=== PATIENT | male | born 1995 | race Two or more races ===

== ENCOUNTER 2018-05-14 13:47 | Emergency (ER) | payer OTHER ==
--- NOTE | 2018-05-14 14:59 | ER Document Report ---
ED Skin Rash/Insect Bite/Abscs - General Chief Complaint: Rash Stated Complaint: RASH Time Seen by Provider: 05/14/18 14:43 Mode of Arrival: Ambulatory Information source: Patient Notes: Patient with complaint of poison juana exposure to his bilateral arms. Patient reports this happened approximately 4 days ago. 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 Patient has tried putting calamine lotion to the area with no relief. Past Medical History - General Information source: Patient - Social History Smoking Status: Never Smoker Frequency of alcohol use: None Drug Abuse: None Family History: Reviewed & Not Pertinent - Medical History Medical History: Negative Surgical Hx: Negative Review of Systems - Review of Systems Constitutional: No symptoms reported EENT: No symptoms reported Cardiovascular: No symptoms reported Respiratory: No symptoms reported Gastrointestinal: No symptoms reported Genitourinary: No symptoms reported Male Genitourinary: No symptoms reported Musculoskeletal: No symptoms reported Skin: See HPI Hematologic/Lymphatic: No symptoms reported Neurological/Psychological: No symptoms reported Physical Exam - Vital signs Vitals: Temp Pulse Resp BP Pulse Ox 98.5 F 60 20 124/54 L 97 05/14/18 13:55 05/14/18 13:55 05/14/18 13:55 05/14/18 13:55 05/14/18 13:55 - Notes Notes: PHYSICAL EXAMINATION: GENERAL: Well-appearing, well-nourished and in no acute distress. HEAD: Atraumatic, normocephalic. EYES: Pupils equal round and reactive to light, extraocular movements intact, sclera anicteric, conjunctiva are normal. ENT: Nares patent, oropharynx clear without exudates. Moist mucous membranes. NECK: Normal range of motion, supple without lymphadenopathy LUNGS: Breath sounds clear to auscultation bilaterally and equal. No wheezes rales or rhonchi. HEART: Regular rate and rhythm without murmurs ABDOMEN: Soft, nontender, nondistended abdomen. No guarding, no rebound. No masses appreciated. Musculoskeletal: Normal range of motion, no pitting or edema. No cyanosis. NEUROLOGICAL: Cranial nerves grossly intact. Normal speech, normal gait. Normal sensory, motor exams PSYCH: Normal mood, normal affect. SKIN: Weeping, oozing and crusting blisters and vesicles noted to patient's bilateral arms consistent with poison juana exposure. Course - Re-evaluation Re-evalutation: 05/14/18 14:55 Patient's examination consistent with poison juana exposure. Will place patient on a prednisone taper pack as well as provide him with a prescription for triamcinolone cream. Patient will also be instructed to take Benadryl 50 mg every 6 hours for the itching. - Vital Signs Vital signs: Temp Pulse Resp BP Pulse Ox 98.5 F 60 20 124/54 L 97 05/14/18 13:55 05/14/18 13:55 05/14/18 13:55 05/14/18 13:55 05/14/18 13:55 Discharge - Discharge Clinical Impression: Poison juana Condition: Stable Disposition: HOME, SELF-CARE Additional Instructions: Poison Juana Poison juana and poison oak can cause an itchy rash. This is called contact dermatitis. It's an allergy to an oil in the plant's leaves. The oil can be spread from clothing to skin, from pets to humans, or from one spot on the body to another. Washing thoroughly with soap immediately after exposure can prevent the rash. (Clothing should be washed as well.) If the oil is not removed, an itchy rash develops a few days after the exposure. Blisters may develop. Two to three weeks may be required for healing. Generally, treatment consists of: (1) an immediate thorough washing with soap to remove the oil, (2) application of a cortisone cream, and (3) antihistamines for itching. If the reaction is particularly severe, oral cortisone medicine may be required. If there are oozing areas, these can be soaked in epsom salts or Nadege's solution. Call the doctor if the rash worsens despite treatment, or if signs of infection occur such as spreading redness, red streaks, swollen glands, swelling , or fever. Prescriptions: Prednisone [Deltasone 10 mg Tablet] 10 mg PO ASDIR PRN #21 tablet PRN Reason: Triamcinolone Acetonide 80 gm TP BID #80 gr Referrals: [facility] [Provider Group] - Follow up as needed
[2018-05-14 15:10] VITALS: BP 128/64
== END 2018-05-14 15:00 | disposition home or self-care (01) ==
LOC: ER 13:47
DX: L23.7 Allergic contact dermatitis due to plants, except food (principal)
CPT/HCPCS: 99282

== ENCOUNTER 2018-09-21 21:40 | Emergency (ER) | payer SELFPAY ==
[2018-09-21] MEDS ORDERED: LIDOCAINE 1%/EPINEPHRINE INJ 20 ML VIAL INJ ONE (22:50)
[2018-09-21] MEDS ORDERED: LIDOCAINE 4%/TETRACAINE 0.5%/EPI 0.18% 5 ML TOPICAL SOLN TOP ONE (22:50)
--- NOTE | 2018-09-21 22:54 | ER Document Report ---
ED General - General Chief Complaint: Laceration Stated Complaint: LEFT HAND LACERATION Time Seen by Provider: 09/21/18 22:43 Notes: Patient is a 23-year-old male who presents with complaints of unintentional laceration to the right thumb and hand. Patient was trying to cut the piece of plastic of a car battery when the knife slipped and cut his left hand. He denies any other injuries. No numbness or weakness into the thumb. No other complaints at this time. Last tetanus shot was around 1 year ago. TRAVEL OUTSIDE OF THE [place] IN LAST 30 DAYS: No - Related Data Allergies/Adverse Reactions: No Known Allergies Allergy (Unverified 09/22/18 01:21) Past Medical History - Social History Smoking Status: Never Smoker Frequency of alcohol use: None Drug Abuse: None Family History: Reviewed & Not Pertinent Renal/ Medical History: Denies: Hx Peritoneal Dialysis Review of Systems - Review of Systems Notes: My Normal Review Basic REVIEW OF SYSTEMS: CONSTITUTIONAL : Denies fever, chills, or sweats. Denies recent illness. MUSCULOSKELETAL: Laceration on thumb. SKIN: Denies rash or skin lesions. NEUROLOGICAL: Denies sensory or motor loss. ALL OTHER SYSTEMS REVIEWED AND NEGATIVE. Physical Exam - Vital signs Vitals: Temp Pulse Resp BP Pulse Ox 98.2 F 72 16 111/56 L 100 09/21/18 21:48 09/21/18 21:48 09/21/18 21:48 09/21/18 21:48 09/21/18 21:48 - Notes Notes: General Appearance: Well nourished, alert, cooperative, no acute distress, mild obvious discomfort. Vitals: reviewed, See vital signs table. Extremities: Patient has a laceration is approximately 5 cm that extends from the dorsal medial aspect of the thumb onto the dorsal aspect of the hand. Small amount of slow venous oozing. Skin: warm, dry, appropriate color, no rash Neuro: speech clear, oriented x 3, normal affect, responds appropriately to questions. Course - Re-evaluation Re-evalutation: 09/22/18 01:27 Wound was thoroughly irrigated cleaned and explored. Patient appears to have a partial laceration through the abductor pollicis muscle; however, patient still able to do abduction and opposition to the pinky. Because of the laceration through the muscle I have placed patient in a thumb spica splint and will have him follow-up with Dr. ventura. I explained to the patient the importance of this follow-up. I will place patient on Keflex to help prevent infection. I encouraged him return to ER in 7 days for suture removal. I encouraged him return to ER immediately if he has any redness or swelling or signs of infection. Patient's last tetanus shot was 1 year ago and therefore he does not need a repeat tetanus shot. Dictation of this chart was performed using voice recognition software; therefore, there may be some unintended grammatical errors. - Vital Signs Vital signs: Temp Pulse Resp BP Pulse Ox 98.4 F 70 16 108/66 100 09/22/18 01:10 09/22/18 01:10 09/22/18 01:10 09/22/18 01:10 09/22/18 01:10 Procedures - Immobilization Left Hand Pre-Proc Neuro Vasc Exam: Normal Immobilizer type: Thumb spica Performed by: PCT Post-Proc Neuro Vasc Exam: Normal - Laceration/Wound Repair Left thumb Wound length (cm): 5 Wound's Depth, Shape: Linear Anesthetic type: 1% Lidocaine w/epi Volume Anesthetic (mLs): 2 Wound explored: Clean Irrigated w/ Saline (mLs): 100 Wound Repaired With: Sutures Suture Size/Type: 5:0, Ethilon Number of Sutures: 10 Post-procedure wound care: Sterile dressing applied, Splint applied Post-procedure NV exam normal: Yes Complications: No Discharge - Discharge Clinical Impression: Laceration of hand Qualifiers: Encounter type: initial encounter Foreign body presence: without foreign body Laterality: left Qualified Code(s): S61.412A - Laceration without foreign body of left hand, initial encounter Condition: Stable Disposition: HOME, SELF-CARE Additional Instructions: Please follow-up with hand surgeon, Dr. Valdez, for reevaluation of your hand. On evaluation of your cut you do have a laceration that went through some of the muscle on your hand. Please follow-up with him in regards to this. We have placed you in a splint. I will place you on antibiotics to prevent infection. Please return to the ER immediately if you have any fevers, redness or swelling to your arm or hand. Feel free to loosen the Hubert wrap on the splint if you feel that is too tight. He must have the sutures removed in 7 days. You can return to the ER to have this performed. Prescriptions: Cephalexin Monohydrate [Keflex 500 mg Capsule] 500 mg PO BID 5 Days #10 capsule Referrals: ROSALVA VALDEZ DO [ACTIVE STAFF] - 09/25/18 (call office this morning to make a close follow up appointment.)
[2018-09-22 01:21] VITALS: BP 108/66
== END 2018-09-22 01:10 | disposition home or self-care (01) ==
LOC: ER 21:40
PROC: 0HQGXZZ Repair Left Hand Skin, External Approach (ICD-10-PCS; principal; 2018-09-21)
DX: S61.012A Laceration without foreign body of left thumb without damage to nail, initial encounter (principal); W26.0XXA Contact with knife, initial encounter; Y92.9 Unspecified place or not applicable
CPT/HCPCS: 12002; 99283; J3490 ×2

== ENCOUNTER 2018-09-22 16:16 | Emergency (ER) | payer SELFPAY ==
[2018-09-22 16:33] VITALS: BP 120/60
[2018-09-22] MEDS ORDERED: HYDROCODONE/ACETAMINOPHEN 5-325 MG (6 TAB/ER DISP) PO PRN (17:32)
--- NOTE | 2018-09-22 17:33 | ER Document Report ---
HPI - HPI Time Seen by Provider: 09/22/18 16:47 Pain Level: 5 Notes: Patient is a 23-year-old male who presents with request for wound check. Patient reports he was seen last night and had 10 sutures placed to his thumb. Patient reports that he took off his dressing and splint today and he is concerned that he might of messed something up as he noticed another area that had a small laceration. Patient states that he noticed some bloody drainage on the dressing. There is no active bleeding at this time. Past Medical History - General Information source: Patient - Social History Smoking Status: Never Smoker Family History: Reviewed & Not Pertinent Patient has suicidal ideation: No Patient has homicidal ideation: No Renal/ Medical History: Denies: Hx Peritoneal Dialysis Vertical Provider Document - CONSTITUTIONAL Notes: PHYSICAL EXAMINATION: GENERAL: Well-appearing, well-nourished and in no acute distress. HEAD: Atraumatic, normocephalic. EYES: Pupils equal round extraocular movements intact, conjunctiva are normal. ENT: Nares patent NECK: Normal range of motion LUNGS: No respiratory distress Musculoskeletal: Normal range of motion NEUROLOGICAL: Normal speech, normal gait. PSYCH: Normal mood, normal affect. SKIN: Warm, Dry, normal turgor, no rashes or lesions noted. Approximate 5 cm laceration noted to left thumb, sutures are in place. Wound looks good without erythema or drainage. Cap refill less than 3 seconds, normal sensation distal to injury limited mobility to the thumb however patient states this was present yesterday when he was seen by previous physician. - INFECTION CONTROL TRAVEL OUTSIDE OF THE [place] IN LAST 30 DAYS: No Course - Re-evaluation Re-evalutation: Wound redressed. Patient given Vicodin dispense pack for severe pain only. Patient encouraged to keep plan to follow-up with orthopedics next week. He will call Tuesday morning to get an appointment. - Vital Signs Vital signs: Temp Pulse Resp BP Pulse Ox 97.7 F 76 16 120/60 99 09/22/18 16:27 09/22/18 16:27 09/22/18 16:27 09/22/18 16:27 09/22/18 16:27 Discharge - Discharge Clinical Impression: Encounter for wound re-check Condition: Stable Disposition: HOME, SELF-CARE Additional Instructions: Your wound appears to be healing well. Please call the orthopedic doctor from your original discharge papers on Tuesday to schedule a follow-up appointment. Please continue to take ibuprofen 600 mg every 6 hours. Take the pain medication as prescribed. You may take 1/2-1 tablet every 6 hours for severe pain only. Forms: Return to Work
== END 2018-09-22 17:57 | disposition home or self-care (01) ==
LOC: ER 16:16
DX: S61.012A Laceration without foreign body of left thumb without damage to nail, initial encounter (principal); X58.XXXA Exposure to other specified factors, initial encounter
CPT/HCPCS: 99282

== ENCOUNTER 2019-03-14 18:18 | Emergency (ER) | payer SELFPAY ==
[2019-03-14 18:43] VITALS: BP 131/51
[2019-03-14] MEDS ORDERED: ACETAMINOPHEN 325 MG TABLET PO ONE (19:44)
--- NOTE | 2019-03-14 19:45 | ER Document Report ---
HPI - HPI Patient complains to provider of: Head injury Time Seen by Provider: 03/14/19 19:26 Onset: This afternoon Onset/Duration: Sudden Quality of pain: Achy Pain Level: 4 Context: Patient was bending over to pick something up and somebody who was working above him was dropping a piece of a 2 x 4 that they had cut. Patient states the board hit him in the head. There was no loss of consciousness and no nausea or vomiting. Patient does have a laceration to apex of scalp. Patient reports that his tetanus is currently up-to-date. Associated Symptoms: Other - Scalp laceration. denies: Headache, Nausea, Vomiting Exacerbated by: Denies Relieved by: Denies Similar symptoms previously: No Recently seen / treated by doctor: No - ROS ROS below otherwise negative: Yes Systems Reviewed and Negative: Yes All other systems reviewed and negative - CONSTITUTIONAL Constitutional: DENIES: Fever - NEURO Neurology: DENIES: Headache, Vision blurred, Dizzinesss / Vertigo - GASTROINTESTINAL Gastrointestinal: DENIES: Nausea, Patient vomiting - DERM Skin Problems: Laceration Past Medical History - General Information source: Patient - Social History Smoking Status: Never Smoker Frequency of alcohol use: Occasional Drug Abuse: None Occupation: Construction Lives with: Family Family History: Reviewed & Not Pertinent Patient has suicidal ideation: No Patient has homicidal ideation: No - Medical History Medical History: Negative Renal/ Medical History: Denies: Hx Peritoneal Dialysis Surgical Hx: Negative - Immunizations Immunizations up to date: Yes Vertical Provider Document - CONSTITUTIONAL Agree With Documented VS: Yes Exam Limitations: No Limitations General Appearance: WD/WN, No Apparent Distress - INFECTION CONTROL TRAVEL OUTSIDE OF THE [place] IN LAST 30 DAYS: No - HEENT HEENT: Normal ENT Exam, Normocephalic, PERRLA. negative: Pharyngeal Exudate, Pharyngeal Tenderness, Pharyngeal Erythema, Tympanic Membrane Red, Tympanic Membrane Bulging Notes: 1 similar laceration to apex of scalp - NECK Neck: Normal Inspection, Supple Notes: No spinal midline tenderness step-off or deformity - RESPIRATORY Respiratory: Breath Sounds Normal, No Respiratory Distress - CARDIOVASCULAR Cardiovascular: Regular Rate, Regular Rhythm - BACK Back: Normal Inspection - MUSCULOSKELETAL/EXTREMETIES Musculoskeletal/Extremeties: MAEW, FROM - NEURO Level of Consciousness: Awake, Alert, Appropriate Motor/Sensory: No Motor Deficit - DERM Integumentary: Warm, Dry, Laceration - 1 cm irregular laceration to apex of scalp Course - Vital Signs Vital signs: Temp Pulse Resp BP Pulse Ox 98.1 F 71 18 131/51 H 95 03/14/19 18:42 03/14/19 18:42 03/14/19 18:42 03/14/19 18:42 03/14/19 18:42 Procedures - Laceration/Wound Repair Head Wound length (cm): 1 Wound's Depth, Shape: Irregular Laceration pre-procedure: Shur-Clens applied Wound explored: Clean Wound Repaired With: Erik Number of Sutures: 1 Post-procedure NV exam normal: Yes Complications: No Adult Head Front/Back picture: 1 - 1 cm Discharge - Discharge Clinical Impression: Head injury Qualifiers: Encounter type: initial encounter Qualified Code(s): S09.90XA - Unspecified injury of head, initial encounter Scalp laceration Qualifiers: Encounter type: initial encounter Qualified Code(s): S01.01XA - Laceration without foreign body of scalp, initial encounter Condition: Stable Disposition: HOME, SELF-CARE Instructions: Acetaminophen, Scalp Laceration ([facility]), Care of Stapled Wounds ([facility]) Additional Instructions: Return immediately for any new or worsening symptoms Followup with your primary care provider, call tomorrow to make a followup appointment Return in 1 week for staple removal Forms: Return to Work Referrals: [facility] [Provider Group] - Follow up as needed
== END 2019-03-14 20:06 | disposition home or self-care (01) ==
LOC: ER 18:18
PROC: 0HQ0XZZ Repair Scalp Skin, External Approach (ICD-10-PCS; principal; 2019-03-14)
DX: S09.90XA Unspecified injury of head, initial encounter (principal); S01.01XA Laceration without foreign body of scalp, initial encounter; W22.8XXA Striking against or struck by other objects, initial encounter
CPT/HCPCS: 99282

== ENCOUNTER 2019-03-31 12:43 | Emergency (ER) | payer SELFPAY ==
[2019-03-31 12:50] VITALS: BP 129/72
--- NOTE | 2019-03-31 12:57 | ER Document Report ---
HPI - HPI Pain Level: 0 Notes: Patient is a 23-year-old male who presents for one staple removal that was placed 2 and half weeks ago for head injury. Patient states that he has not had any complications since placement. He is eating and drinking without difficulty. He is urinating normally. He has no other concerns or complaints other than to get the staple out of his head. Denies drug allergies. Denies any headache, fever, neck pain, changes in vision/speech/mentation/hearing, URI, sore throat, chest pain, palpitations, syncope, cough, shortness of breath, wheeze, dyspnea, abdominal pain, nausea/vomiting/diarrhea, urinary retention, dysuria, hematuria, loss of control of bowel or bladder, numbness/tingling, saddle anesthesia, muscle paralysis/weakness, or rash. - ROS Systems Reviewed and Negative: Yes All other systems reviewed and negative Past Medical History - Social History Smoking Status: Unknown if Ever Smoked Family History: Reviewed & Not Pertinent Renal/ Medical History: Denies: Hx Peritoneal Dialysis - Immunizations Immunizations up to date: Yes Vertical Provider Document - CONSTITUTIONAL Agree With Documented VS: Yes Notes: PHYSICAL EXAMINATION: GENERAL: Well-appearing, well-nourished and in no acute distress. HEAD: 1 staple intact without any evidence of fluctuance, hematoma, erythema, warmth, swelling, purulence. EYES: Pupils equal round and reactive to light, extraocular movements intact, sclera anicteric, conjunctiva are normal. ENT: EAC clear b/l. TM's intact b/l without erythema, fluid, or perforation. Nares patent and without discharge. oropharynx clear without exudates. No tonsilar hypertrophy or erythema. Moist mucous membranes. No sinus tenderness. NECK: Normal range of motion, supple without lymphadenopathy LUNGS: Breath sounds clear to auscultation bilaterally and equal. No wheezes rales or rhonchi. HEART: Regular rate and rhythm without murmurs, rubs, gallops. Musculoskeletal: FROM to passive/active. Strength 5+/5. NEUROLOGICAL: Cranial nerves grossly intact. Normal speech, normal gait. Normal sensory, motor exams PSYCH: Normal mood, normal affect. SKIN: see above. - INFECTION CONTROL TRAVEL OUTSIDE OF THE [place] IN LAST 30 DAYS: No Course - Re-evaluation Re-evalutation: 06/08/19 13:01 Patient is an afebrile, well-hydrated, 23-year-old male who presents for staple removal. Vitals are acceptable. PE is otherwise unremarkable. Patient is nontoxic-appearing and is tolerating p.o. without difficulty. There is no evidence of wound dehiscence or infection at the staple site. Erik removed without any complications. No further work-up warranted. Recheck with your PCM in 3 to 5 days. Return to the ED with any other worsening/concerning symptoms. Patient is in agreement. - Vital Signs Vital signs: Temp Pulse Resp BP Pulse Ox 98.4 F 55 L 16 129/72 H 97 03/31/19 12:49 03/31/19 12:49 03/31/19 12:49 03/31/19 12:49 03/31/19 12:49 Discharge - Discharge Clinical Impression: Removal of staple Condition: Stable Disposition: HOME, SELF-CARE Instructions: Staple Removal ([facility]) Additional Instructions: Keep the skin clean Wash with soap and water Tylenol/ibuprofen if needed Triple antibiotic ointment if needed Take medication as directed Monitor for any worsening symptoms Recheck with your PCM in 3-5 days Return to the ED with any worsening symptoms and/or development of fever, headache, chest pain, palpitations, syncope, shortness of breath, trouble breathing, abdominal pain, n/v/d, abscess, purulent discharge, red streaks, worsening swelling, or other worsening symptoms that are concerning to you. Forms: Elevated Blood Pressure Referrals: [facility] [Provider Group] - Follow up as needed
== END 2019-03-31 13:04 | disposition home or self-care (01) ==
LOC: ER 12:43
DX: Z48.02 Encounter for removal of sutures (principal)

== ENCOUNTER 2019-04-04 15:36 | Emergency (ER) | payer SELFPAY ==
[2019-04-04] MEDS ORDERED: DIPH/PERTUSS(ACELL)/TETANUS VAC/PF 0.5 ML SYR (>=10YO) IM ONE (16:03)
--- NOTE | 2019-04-04 16:05 | ER Document Report ---
ED Medical Screen (RME) - General Chief Complaint: Laceration Stated Complaint: WRIST LACERATION Time Seen by Provider: 04/04/19 16:02 Mode of Arrival: Ambulatory Information source: Patient Notes: 23-year-old male presented to ED for laceration to the right wrist. He states he was carrying some building material in his arm when the metal part of the trust caught his right wrist causing a laceration between 1-1/2 to 2 cm long across the right wrist. He states it was bleeding pretty bad before coming to the emergency room. Bleeding is controlled, patient has full range of motion to his wrist and fingers, patient is in no acute distress at this time. I have greeted and performed a rapid initial assessment of this patient. A comprehensive ED assessment and evaluation of the patient, analysis of test results and completion of medical decision making process will be conducted by an additional ED providers. Dictation of this chart was performed using voice recognition software; therefore, there may be some unintended grammatical errors. TRAVEL OUTSIDE OF THE [place] IN LAST 30 DAYS: No - Related Data Allergies/Adverse Reactions: No Known Allergies Allergy (Verified 04/04/19 15:39) Past Medical History Renal/ Medical History: Denies: Hx Peritoneal Dialysis - Immunizations Immunizations up to date: Yes Physical Exam - Vital signs Vitals: Temp Pulse Resp BP Pulse Ox 98.6 F 63 14 116/89 H 99 04/04/19 15:44 04/04/19 15:44 04/04/19 15:44 04/04/19 15:44 04/04/19 15:44 Course - Vital Signs Vital signs: Temp Pulse Resp BP Pulse Ox 98.6 F 63 14 116/89 H 99 04/04/19 15:44 04/04/19 15:44 04/04/19 15:44 04/04/19 15:44 04/04/19 15:44
[2019-04-04] MEDS ORDERED: LIDOCAINE 1% INJ-PF (10 MG/ML) 30 ML SDV INJ ONE (16:47)
--- NOTE | 2019-04-04 18:02 | ER Document Report ---
ED General - General Chief Complaint: Laceration Stated Complaint: WRIST LACERATION Time Seen by Provider: 04/04/19 16:02 Mode of Arrival: Ambulatory Information source: Patient, [facility], [facility] Records Notes: 23-year-old male with no reported past medical history presents with laceration to his right wrist. He states he was carrying some building material in his arm when the metal part of the trust caught his right wrist causing a laceration between 1-1/2 to 2 cm long across the right wrist. He states it was bleeding pretty bad before coming to the emergency room. Bleeding is controlled, patient has full range of motion to his wrist and fingers, patient is in no acute distress at this time. Patient is not up-to-date with tetanus TRAVEL OUTSIDE OF THE [place] IN LAST 30 DAYS: No - HPI Onset: Just prior to arrival Onset/Duration: Sudden Quality of pain: Burning Severity: Mild Pain Level: 1 Associated symptoms: denies: Chest pain, Fever, Nausea, Vomiting, Shortness of breath - Related Data Allergies/Adverse Reactions: No Known Allergies Allergy (Verified 04/04/19 15:39) Past Medical History - General Information source: Patient - Social History Smoking Status: Unknown if Ever Smoked Chew tobacco use (# tins/day): No Frequency of alcohol use: Occasional Drug Abuse: None Family History: Reviewed & Not Pertinent Patient has suicidal ideation: No Patient has homicidal ideation: No Renal/ Medical History: Denies: Hx Peritoneal Dialysis - Immunizations Immunizations up to date: Yes Review of Systems - Review of Systems Notes: REVIEW OF SYSTEMS: CONSTITUTIONAL : Denies fever, chills, or sweats. Denies recent illness. Denies weight loss, recent hospitalizations. EENT: Denies visual changes, eye pain. Denies sore throat, oral lesions, difficulty swallowing. CARDIOVASCULAR: Denies chest pain. Denies palpitations. Denies lower extremity edema. RESPIRATORY: Denies cough. Denies shortness of breath, wheezing. GASTROINTESTINAL: Denies abdominal pain or distention. Denies nausea, vomiting, or diarrhea. Denies blood in vomitus, stools, or per rectum. Denies black, tarry stools. Denies constipation. GENITOURINARY: Denies difficulty urinating, painful urination, frequency, blood in urine, testicular pain or penile discharge. MUSCULOSKELETAL: Denies back or neck pain or stiffness. Denies joint pain or swelling. SKIN: Denies rash, + right wrist laceration HEMATOLOGIC : Denies easy bruising or bleeding. LYMPHATIC: Denies swollen glands. NEUROLOGICAL: Denies confusion or altered mental status. Denies loss of consciousness. Denies dizziness or lightheadedness. Denies headache. Denies weakness or paralysis. Denies problems difficulty with ambulation, slurred speech. Denies sensory loss, numbness, or tingling. Denies seizures. PSYCHIATRIC: Denies anxiety or stress. Denies depression, suicidal ideation, or Physical Exam - Vital signs Vitals: Temp Pulse Resp BP Pulse Ox 98.6 F 63 14 116/89 H 99 04/04/19 15:44 04/04/19 15:44 04/04/19 15:44 04/04/19 15:44 04/04/19 15:44 - Notes Notes: PHYSICAL EXAMINATION: GENERAL: Well-appearing, well-nourished and in no acute distress. HEAD: Atraumatic, normocephalic. EYES: Pupils equal round and reactive to light, extraocular movements intact, s clera anicteric, conjunctiva are normal. ENT: Nares patent, oropharynx clear without exudates. Moist mucous membranes. NECK: Normal range of motion, supple without lymphadenopathy LUNGS: Breath sounds clear to auscultation bilaterally and equal. No wheezes rales or rhonchi. HEART: Regular rate and rhythm without murmurs ABDOMEN: Soft, nontender, nondistended abdomen. No guarding, no rebound. No masses appreciated. Musculoskeletal: Normal range of motion, no pitting or edema. No cyanosis. NEUROLOGICAL: Cranial nerves grossly intact. Normal speech, normal gait. Normal sensory, motor exams PSYCH: Normal mood, normal affect. SKIN: 3.5 cm linear laceration of the palmar aspect of the right proximal forearm. Course - Re-evaluation Re-evalutation: 04/04/19 18:22 Temp Pulse Resp BP Pulse Ox 98.6 F 63 14 116/89 H 99 04/04/19 15:44 04/04/19 15:44 04/04/19 15:44 04/04/19 15:44 04/04/19 15:44 23-year-old male presents with a laceration to his right forearm. 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 Tetanus is not currently up-to-date. Vital signs reviewed and within normal limits. Patient does not appear toxic or dehydrated. Exam is significant for a 3.5 cm linear laceration to the right forearm which was repaired with 2 horizontal mattresses and one simple suture. Patient tolerated this well. Laceration care was discussed with the patient. I did advise that he stay off of work for the next 48 hours due to working in construction, having to perform repetitive movements. Patient states that he is going back to work tomorrow. Also discussed signs and symptoms that should prompt his return including redness around the area, purulent discharge from the laceration or any other symptoms concerning to him. Patient was evaluated and treated as appropriate for the patient's presenting symptoms and complaint, with consideration of any critical or life threatening conditions that may be associated with their obtained history and exam as noted above. All results were discussed with patient. Patient provided the opportunity to ask questions, and express concerns. Patient was educated on treatments based on their presumed diagnosis as noted above. At this time we will discharge the patient with return precautions and follow-up recommendations. Verbal discharge instructions given a the bedside. Medication warnings reviewed. Patient is in agreement with this plan and has verbalized understanding of return precautions. After careful consideration I feel that that patient can be safely discharged from the emergency department, they were advised to followup with a primary care physician in 2-3 days. Dictation on this chart was performed using voice recognition software and may result in unintended grammatical, spelling, syntax or errors. - Vital Signs Vital signs: Temp Pulse Resp BP Pulse Ox 98.6 F 63 14 116/89 H 99 04/04/19 15:44 04/04/19 15:44 04/04/19 15:44 04/04/19 15:44 04/04/19 15:44 Procedures - Laceration/Wound Repair Right Arm Time completed: 18:02 Wound length (cm): 3.5 Wound's Depth, Shape: Linear Laceration pre-procedure: Sterile PPE donned, Betadine prep applied, Sterile drapes applied, Shur-Clens applied Anesthetic type: 1% Lidocaine Volume Anesthetic (mLs): 5 Wound explored: Clean Irrigated w/ Saline (mLs): 2,000 Wound Repaired With: Sutures Suture Size/Type: 4:0 Number of Sutures: 3 - 2 horizontal, 1 simple Layer Closure?: No Post-procedure NV exam normal: Yes Complications: No Discharge - Discharge Clinical Impression: Laceration of right forearm Qualifiers: Encounter type: initial encounter Qualified Code(s): S51.811A - Laceration without foreign body of right forearm, initial encounter Condition: Good Disposition: HOME, SELF-CARE Instructions: Laceration Care ([facility]), Soap Cleansing ([facility]) Additional Instructions: Please return to your primary doctor, the ED, or an urgent care in 10 days for suture removal. Return immediately if you develop spreading redness around the wound, pus from the wound, worsening pain, or a fever of >100.4. Keep the area clean and dry. Wash gently with soap and water twice daily and cover with antibiotic ointment. Forms: Return to Work, Elevated Blood Pressure
[2019-04-04 18:41] VITALS: BP 124/62
== END 2019-04-04 18:45 | disposition home or self-care (01) ==
LOC: ER 15:36
DX: S51.811A Laceration without foreign body of right forearm, initial encounter (principal); W45.8XXA Other foreign body or object entering through skin, initial encounter; Y93.H3 Activity, building and construction; Y99.0 Civilian activity done for income or pay
CPT/HCPCS: 99282; 90471; 90715; 12002; J3490

== ENCOUNTER 2019-04-14 19:31 | Emergency (ER) | payer SELFPAY ==
--- NOTE | 2019-04-14 20:14 | ER Document Report ---
HPI - HPI Time Seen by Provider: 04/14/19 20:08 Pain Level: Denies Notes: Patient is a 23-year-old male no significant past medical history who presents for suture removal status post placement to his right wrist 10 days ago. He had 2 horizontal mattress and one simple interrupted suture placed. Patient states he has not had any complications since placement. He has not noticed any redness, discharge, or opening of his wound. Denies any headache, fever, URI, sore throat, chest pain, palpitations, syncope, cough, shortness of breath, wheeze, dyspnea, abdominal pain, nausea/vomiting/diarrhea, urinary retention, dysuria, hematuria, loss of control of bowel or bladder, numbness/tingling, muscle paralysis/weakness, or rash. - ROS Systems Reviewed and Negative: Yes All other systems reviewed and negative Past Medical History - Social History Smoking Status: Never Smoker Family History: Reviewed & Not Pertinent Renal/ Medical History: Denies: Hx Peritoneal Dialysis - Immunizations Immunizations up to date: Yes Vertical Provider Document - CONSTITUTIONAL Agree With Documented VS: Yes Notes: PHYSICAL EXAMINATION: GENERAL: Well-appearing, well-nourished and in no acute distress. LUNGS: Breath sounds clear to auscultation bilaterally and equal. No wheezes rales or rhonchi. HEART: Regular rate and rhythm without murmurs, rubs, gallops. Musculoskeletal: Rt wrist: FROM to passive/active. Strength 5+/5. No bony tenderness. N/V intact. Extremities: No cyanosis, clubbing, or edema b/l. Peripheral pulses 2+. Capillary refill less than 3 seconds. NEUROLOGICAL: Normal speech, normal gait. Normal sensory, motor exams PSYCH: Normal mood, normal affect. SKIN: [address] without erythema, purulence, fluctuance, streaks, warmth. The very superficial ends of the wound did not fully come together, but there is no significant wound dehiscence noted. - INFECTION CONTROL TRAVEL OUTSIDE OF THE [place] IN LAST 30 DAYS: No Course - Re-evaluation Re-evalutation: 04/14/19 20:12 Patient is an afebrile, well-hydrated, 23-year-old male who presents for suture removal. Vitals are acceptable. PE is otherwise unremarkable. 3 sutures removed successfully without any complications. Wound dressing placed and wound instructions reviewed. No evidence of significant wound dehiscence or infection. Patient to recheck with his PCM as reviewed. Return to the ED with any other worsening/concerning symptoms. Patient is in agreement. Discharge - Discharge Clinical Impression: Visit for suture removal Condition: Stable Disposition: HOME, SELF-CARE Instructions: Suture Removal Additional Instructions: Keep the skin clean Wash with soap and water Tylenol/ibuprofen if needed Take medication as directed Monitor for any worsening symptoms Recheck with your PCM in 3-5 days Return to the ED with any worsening symptoms and/or development of fever, headache, chest pain, palpitations, syncope, shortness of breath, trouble breathing, abdominal pain, n/v/d, abscess, purulent discharge, red streaks, worsening swelling, or other worsening symptoms that are concerning to you. Referrals: [facility] [Provider Group] - Follow up as needed
== END 2019-04-14 20:21 | disposition home or self-care (01) ==
LOC: ER 19:31
DX: Z48.02 Encounter for removal of sutures (principal)

== ENCOUNTER 2019-05-27 11:28 | Emergency (ER) | payer SELFPAY ==
[2019-05-27 11:35] VITALS: BP 142/68
[2019-05-27] MEDS ORDERED: AZITHROMYCIN 250 MG TABLET PO ONE (11:48)
[2019-05-27] MEDS ORDERED: CEFTRIAXONE INJ 250 MG VIAL IM ONE (11:48)
--- NOTE | 2019-05-27 11:53 | ER Document Report ---
HPI - HPI Patient complains to provider of: std exposure Time Seen by Provider: 05/27/19 11:39 Onset: Other Onset/Duration: Persistent Pain Level: 2 Context: This 23-year-old male presents the emergency department with reports that he has been exposed to an STD. He reports that his girlfriend was recently treated for gonorrhea and chlamydia. He reports he has had his symptoms for the past month and a half. He was evaluated approximately 1 month ago at the health department but his results were negative. Since then his girlfriend has been diagnosed with gonorrhea and chlamydia. He denies penile discharge. Denies testicular pain. Denies fever vomiting diarrhea denies abdominal pain. Reports his meatus is slightly irritated. Denies sores to his penis. He does report he has some white dots in the back of his throat and a rash to his right arm. Associated Symptoms: None Exacerbated by: Denies Relieved by: Denies Similar symptoms previously: Yes Recently seen / treated by doctor: Yes - CONSTITUTIONAL Constitutional: DENIES: Fever, Chills Past Medical History - General Information source: Patient - Social History Smoking Status: Never Smoker Cigarette use (# per day): No Frequency of alcohol use: None Drug Abuse: None Family History: Reviewed & Not Pertinent Patient has suicidal ideation: No Patient has homicidal ideation: No - Medical History Medical History: Negative Renal/ Medical History: Denies: Hx Peritoneal Dialysis Surgical Hx: Negative - Immunizations Immunizations up to date: Yes Vertical Provider Document - CONSTITUTIONAL Agree With Documented VS: Yes Exam Limitations: No Limitations General Appearance: WD/WN, No Apparent Distress - INFECTION CONTROL TRAVEL OUTSIDE OF THE [place] IN LAST 30 DAYS: No - HEENT HEENT: Atraumatic, Normal ENT Exam, Normocephalic, PERRLA. negative: Pharyngeal Exudate, Pharyngeal Erythema, Tympanic Membrane Red - NECK Neck: Normal Inspection, Supple. negative: Lymphadenopathy-Left, Lymphadenopathy-Right - RESPIRATORY Respiratory: Breath Sounds Normal, No Respiratory Distress - CARDIOVASCULAR Cardiovascular: Regular Rate, Regular Rhythm - GI/ABDOMEN Gastrointestinal: Abdomen Soft, Abdomen Non-Tender - REPRODUCTIVE Male Genitalia: Normal Inspection - some erythema around urethra opening, no open sores, no testicular pain - BACK Back: Normal Inspection - MUSCULOSKELETAL/EXTREMETIES Musculoskeletal/Extremeties: STEVE ELLISON - NEURO Level of Consciousness: Awake, Alert, Appropriate Motor/Sensory: No Motor Deficit - DERM Integumentary: Warm, Dry Course - Re-evaluation Re-evalutation: 05/27/19 11:52 This 23-year-old male presents with reports that his girlfriend sexual partner was recently diagnosed and treated for gonorrhea and chlamydia. He is here requesting treatment. Patient is treated with Zithromax and Rocephin. STD c ultures obtained. Patient was instructed on plan of care and verbalized understanding. Dictation of this chart was performed using voice recognition software; therefore, there may be some unintended grammatical errors. 05/27/19 14:03 NEG STD. - Vital Signs Vital signs: Temp Pulse Resp BP Pulse Ox 98.3 F 81 16 142/68 H 98 05/27/19 11:34 05/27/19 11:34 05/27/19 11:34 05/27/19 11:34 05/27/19 11:34 Discharge - Discharge Clinical Impression: Exposure to STD Condition: Stable Disposition: HOME, SELF-CARE Instructions: Azithromycin ([facility]), Chlamydia ([facility] Gonorrhea ([facility]), [facility] Department, Rocephin ([facility]) Additional Instructions: *You have been evaluated for STD exposure *You have been treated with Rocephin and Zithromax for gonorrhea and chlamydia. Your STD cultures are pending. If you would like to know if they were positive contact [phone] Tuesday through Tuesday 8-4. *Follow up with your primary care provider or the health department for recheck *Avoid sexual intercourse until follow up *Return to ED for worsening condition, changes, needs Monitor your blood pressure. Your blood pressure was elevated today. This may be because you were anxious, in pain or because you need medication. It is important to follow up with your primary care provider for full evaluation. Forms: Elevated Blood Pressure
[2019-05-27] MEDS ORDERED: LIDOCAINE 1% INJ-PF (10 MG/ML) 30 ML SDV ONE (12:00)
[2019-05-27 12:25] LABS: APPEARANCE,URINE SLIGHTLY-CLOUDY; BILIRUBIN,URINE NEGATIVE (NEGATIVE); COLOR,URINE YELLOW; GLUCOSE, URINE NEGATIVE (NEGATIVE); KETONES,URINE NEGATIVE (NEGATIVE); LEUKOCYTE ESTERASE,URINE NEGATIVE (NEGATIVE); NITRITE,URINE NEGATIVE (NEGATIVE); PROTEIN,URINE NEGATIVE (NEGATIVE); URINE SPECIFIC GRAVITY 1.018; UROBILINOGEN,URINE NEGATIVE mg/dL (<2.0)
[2019-05-27 13:50] LABS: CHLAM PCR NOT DETECTED (NOT DETECT)
== END 2019-05-27 12:24 | disposition home or self-care (01) ==
LOC: ER 11:28
DX: Z20.2 Contact with and (suspected) exposure to infections with a predominantly sexual mode of transmission (principal)
CPT/HCPCS: 99283; 96374; 96375; 81001; 87491; 87591; J3490; J0696

== ENCOUNTER 2019-06-04 17:53 | Emergency (ER) | payer SELFPAY ==
--- NOTE | 2019-06-04 18:24 | ER Document Report ---
HPI - HPI Time Seen by Provider: 06/04/19 18:24 Pain Level: 3 Notes: Otherwise healthy 23-year-old male presenting to the emergency department with concern for rash to the tip of his penis. Patient reports he was treated for possible STD exposure approximately 1 week ago, states his significant other tested positive for chlamydia and gonorrhea. He denies any dysuria or penile discharge but reports a faint rash to the tip of his penis that he noticed today. Past Medical History - General Information source: Patient - Social History Smoking Status: Never Smoker Frequency of alcohol use: None Drug Abuse: None Family History: Reviewed & Not Pertinent - Medical History Medical History: Negative Renal/ Medical History: Denies: Hx Peritoneal Dialysis Surgical Hx: Negative - Immunizations Immunizations up to date: Yes Vertical Provider Document - CONSTITUTIONAL Notes: PHYSICAL EXAMINATION: GENERAL: Well-appearing, well-nourished and in no acute distress. HEAD: Atraumatic, normocephalic. EYES: Pupils equal round extraocular movements intact, conjunctiva are normal. ENT: Nares patent NECK: Normal range of motion LUNGS: No respiratory distress Musculoskeletal: Normal range of motion NEUROLOGICAL: Normal speech, normal gait. PSYCH: Normal mood, normal affect. SKIN: Faint erythematous rash with satellite lesions noted to the tip of patient's uncircumcised penis. - INFECTION CONTROL TRAVEL OUTSIDE OF THE [place] IN LAST 30 DAYS: No Course - Re-evaluation Re-evalutation: Urinalysis was unremarkable. Chlamydia and gonorrhea testing pending. Patient wishes to have prophylactic treatment for both chlamydia and gonorrhea as he reports his partner did not complete her treatment. The rash on his penis appears most consistent with a fungal/yeast rash. It is very mild in nature. Will give patient prescription for antifungal cream. Encouraged to follow-up with health department for both patient and his partner. - Vital Signs Vital signs: Temp Pulse Resp BP Pulse Ox 98.8 F 90 18 141/58 H 98 06/04/19 18:02 06/04/19 18:02 06/04/19 18:02 06/04/19 18:02 06/04/19 18:02 Discharge - Discharge Clinical Impression: Concern about STD in male without diagnosis, Rash of penis Condition: Stable Disposition: HOME, SELF-CARE Additional Instructions: You are treated prophylactically in the emergency department for possible sexually transmitted diseases. I suggest you go to the health department to have a full panel done including syphilis and HIV testing. Your partner should go as well. Apply the ointment to the tip of your penis as well as your anus as the rash may be a yeast rash. Please follow-up with the health department at your earliest convenience. Prescriptions: Nystatin [Mycostatin Cream 15 gm] 1 applic TP BID #15 gm
[2019-06-04] MEDS ORDERED: LIDOCAINE 1% INJ-PF (10 MG/ML) 30 ML SDV IM ONE (18:59)
[2019-06-04] MEDS ORDERED: CEFTRIAXONE INJ 250 MG VIAL IM ONE (18:59)
[2019-06-04] MEDS ORDERED: AZITHROMYCIN 250 MG TABLET PO ONE (18:59)
[2019-06-04 19:11] LABS: APPEARANCE,URINE CLEAR; BILIRUBIN,URINE NEGATIVE (NEGATIVE); COLOR,URINE YELLOW; GLUCOSE, URINE NEGATIVE (NEGATIVE); KETONES,URINE NEGATIVE (NEGATIVE); LEUKOCYTE ESTERASE,URINE NEGATIVE (NEGATIVE); NITRITE,URINE NEGATIVE (NEGATIVE); PROTEIN,URINE NEGATIVE (NEGATIVE); URINE SPECIFIC GRAVITY 1.023; UROBILINOGEN,URINE NEGATIVE mg/dL (<2.0)
[2019-06-04 19:27] VITALS: BP 131/68
[2019-06-04 20:39] LABS: CHLAM PCR NOT DETECTED (NOT DETECT)
== END 2019-06-04 19:28 | disposition home or self-care (01) ==
LOC: ER 17:53
DX: R21 Rash and other nonspecific skin eruption (principal); Z20.2 Contact with and (suspected) exposure to infections with a predominantly sexual mode of transmission
CPT/HCPCS: 81001; 87491; 87591; J3490; J0696; 96372; 99283

== ENCOUNTER 2019-09-02 15:37 | Emergency (ER) | payer SELFPAY ==
[2019-09-02] MEDS ORDERED: FLUCONAZOLE 100 MG TABLET PO ONE (15:57)
--- NOTE | 2019-09-02 16:01 | ER Document Report ---
HPI - HPI Patient complains to provider of: Genital itching Time Seen by Provider: 09/02/19 15:43 Onset: Other - 3 to 4 months Pain Level: Denies Context: This 24-year-old male presents emergency department with complaints of genital itching a rash around the penis. Reports he has had this for the past 3 to 4 months. He has been seen at this emergency department twice. He reports he starts itching a lot when he is working outside. 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 Reports he also gets shaking in between his thighs. Denies pain with void. Denies testicular pain. Denies other symptoms such as fever vomiting diarrhea. Patient was seen in May for same symptoms and treated for STD prophylactically and also treated with nystatin at that time. He reports the nystatin did not help. He reports he did utilize some clotriamazole which helped. Associated Symptoms: None Exacerbated by: Denies Relieved by: Denies Similar symptoms previously: Yes Recently seen / treated by doctor: No Past Medical History - General Information source: Patient - Social History Smoking Status: Current Every Day Smoker Cigarette use (# per day): Yes Frequency of alcohol use: None Drug Abuse: None Occupation: construction Family History: Reviewed & Not Pertinent Patient has suicidal ideation: No Patient has homicidal ideation: No - Medical History Medical History: Negative Renal/ Medical History: Denies: Hx Peritoneal Dialysis Surgical Hx: Negative - Immunizations Immunizations up to date: Yes Vertical Provider Document - CONSTITUTIONAL Agree With Documented VS: Yes Exam Limitations: No Limitations General Appearance: WD/WN, No Apparent Distress - INFECTION CONTROL TRAVEL OUTSIDE OF THE [place] IN LAST 30 DAYS: No - HEENT HEENT: Atraumatic, Normocephalic - NECK Neck: Normal Inspection, Supple - RESPIRATORY Respiratory: No Respiratory Distress - CARDIOVASCULAR Cardiovascular: Regular Rate - REPRODUCTIVE Male Genitalia: Abnormal Inspection - uncircumsized, no discharge, pruritic erythematous rash around penile head, no ulcerations, no sores. no pain no swelling to testicles - MUSCULOSKELETAL/EXTREMETIES Musculoskeletal/Extremeties: STEVE ELLISON - NEURO Level of Consciousness: Awake, Alert, Appropriate Motor/Sensory: No Motor Deficit - DERM Integumentary: Warm, Dry Course - Re-evaluation Re-evalutation: 09/02/19 16:12 24-year-old male presents emergency department with complaints of genital itching for the past 3 to 4 months. He does working construction reports it itches more when he is working. Patient has been treated with nystatin and also utilize some clotrimazole which did seem to help with the itching. We will give him a Diflucan and it does a prescription for clotrimazole and instructed to follow-up with primary care provider for continued symptoms he verbalized understanding to all instructions. Dictation of this chart was performed using voice recognition software; therefore, there may be some unintended grammatical errors. - Vital Signs Vital signs: Temp Pulse Resp BP Pulse Ox 98.4 F 86 16 123/66 98 09/02/19 15:44 09/02/19 15:44 09/02/19 15:44 09/02/19 15:44 09/02/19 15:44 Discharge - Discharge Clinical Impression: Itching of male genitalia, Luda infection Condition: Stable Disposition: HOME, SELF-CARE Instructions: Family Physicians / Practices, Fluconazole ([facility]) Additional Instructions: *You have been treated for genital itching *apply medication as prescribed *Avoid itching, Monitor your skin for signs of infection such as pain, redness, swelling, warmth *Keep your skin dry *Follow up with a primary care provider within one week for recheck *Return to ED for signs of infection, worsening condition, changes, needs Prescriptions: Clotrimazole [Jock Itch] 1 applic TP DAILY #1 cream..g.
[2019-09-02 16:09] VITALS: BP 140/70
== END 2019-09-02 16:08 | disposition home or self-care (01) ==
LOC: ER 15:37
DX: B37.9 Candidiasis, unspecified (principal); F17.210 Nicotine dependence, cigarettes, uncomplicated